=== PATIENT | male | born 1960 | race American Indian/Alaskan Native ===

== ENCOUNTER 2020-07-17 16:14 | Emergency (ER) | payer OTHER ==
--- NOTE | 2020-07-17 16:45 | Event Note ---
ED Screening Note Date of service: 07/17/20 Time: 16:41 ED Screening Note: 59-year-old male patient with history of dilated cardiomyopathy, left bundle branch block, hypertension, hyperlipidemia, prediabetes, obesity, prostate cancer, congestive heart failure, and biventricular AICD placement presents to the emergency department with complaints of slurred speech and difficulty walking. Last time known well was 14:30. States he "can't walk because he feels off balance." Patient was evaluated at another local emergency department prior to being transported to this facility by EMS. Attending emergency physician at outside facility discussed case with personal lines insurance agent neurologist, who recommended transporting patient to the nearest emergency department with capability for TPA administration. Hypertensive in triage. General: Awake, appropriately interactive, no acute distress. Neck: Supple. Full range of motion intact. Cardiovascular: Normal peripheral perfusion. Pulmonary: No respiratory distress. Patient is speaking normally without use of accessory muscles. Skin: No apparent rashes or lesions. Neurological: Patient is alert and oriented. Follows commands. Expressive aphasia noted. Musculoskeletal: Moves all four extremities spontaneously with normal range of motion. Psych: Cooperative. Appropriate mood and affect. Patient presents within the appropriate timeframe for TPA administration. Code stroke protocol initiated. Emergent head CT ordered. I have greeted and performed a focused rapid initial assessment of this patient. A comprehensive ED assessment and evaluation of the patient, analysis of all test results, and completion of the medical decision-making process will be conducted by additional ED providers. This initial assessment/diagnostic orders/clinical plan/treatment(s) is/are subject to change based on patients health status, clinical progression and re-assessment. Further treatment and workup at subsequent clinical provider's discretion. Patient/guardian urged not to elope from the ED as their condition may be serious if not clinically asses sed and managed.
--- NOTE | 2020-07-17 16:52 | Emergency Department Report ---
ED General Adult HPI - General Chief complaint: Neuro Symptoms/Deficit Stated complaint: DIZZY PUI?: No Source: patient, EMS ( EMS documentation not available at time of chart dictation ), RN notes reviewed Mode of arrival: Ambulatory Limitations: Physical Limitation - History of Present Illness Initial comments: The patient was evaluated in the emergency department for symptoms described in the history of present illness. He/she was evaluated in the context of the global COVID-19 pandemic, which necessitated consideration that the patient might be at risk for infection with the virus that causes COVID-19. Institutional protocols and algorithms that pertain to the evaluation of patients at risk for COVID-19 are in a state of rapid change based on information released by regulatory bodies including the CDC and federal and state organizations. These policies and algorithms were followed during the patient's care in the emergency department. Please note that these policies, procedures and recommendations changed on a rapid basis. Primary CARE doctor: [facility] reed The patient is a 59-year-old gentleman. He is not known to myself previously. His past medical history includes dilated cardiomyopathy, left bundle branch block, hypertension, hyperlipidemia, prediabetes, obesity, prostate cancer, and a biventricular AICD. He takes 81 mg of aspirin on a daily basis, but otherwise, denies systemic anticoagulation. He presents to the ER today as a possible code stroke. He was sent to the emergency room by a local physician at the [facility]. Patient's last known well time is 2:30 PM. Apparently he woke up at 3:00 PM today, and felt dysarthric, and unsteady, with left arm weakness and clumsiness. He was initially seen at an outpatient [facility] facility, which apparently did not have capability of performing neuroimaging, or administering TPA, and he was thus referred to this emergency room because of provided a higher level of care. A code stroke was called overhead, and a noncontrast CT scan of the brain was negative for acute findings. At the moment, the patient denies physical pain. He reports that he still feels somewhat dysarthric. He feels like his left upper extremity clumsiness and weakness is improved. A noncontrast CT scan of the brain he was negative for acute findings. Patient was evaluated by myself and our stroke neurologist, Dr. Moy Pabon; we both advised the patient that he was eligible for TPA, and we discussed risks, benefits, and alternatives. The patient provided informed refusal of TPA. The patient is amenable to CT angiogram of the head and neck to evaluate for large vessel occlusion. The patient currently denies headache, neck pain, chest pain, abdominal pain, s hortness of breath, urinary symptoms, hematemesis, bright red blood per rectum, and Covid symptomatology, he reports that he is completed his Covid vaccination series. -: Sudden, hour(s) Location: left, upper extremity Consistency: now resolved Improves with: none Worsens with: none Associated Symptoms: denies other symptoms - Related Data Home Medications Medication Instructions Recorded Confirmed Last Taken Furosemide [Lasix TAB] 40 mg PO QDAY 12/20/15 12/20/15 12/20/15 NIFEdipine XL [Procardia Xl] 60 mg PO QDAY 12/20/15 12/20/15 12/20/15 Spironolactone [Aldactone] 25 mg PO QDAY 12/20/15 12/20/15 12/20/15 Previous Rx's Medication Instructions Recorded Last Taken Type Albuterol Sulfate [Proair 90 mcg IH Q4HR PRN #2 aer.pow.ba 12/20/15 Unknown Rx Respiclick] Azithromycin [Zithromax] 250 mg PO QDAY #4 tablet 12/20/15 Unknown Rx Benzonatate [Tessalon Perles] 100 mg PO Q8HR PRN #30 capsule 12/20/15 Unknown Rx Fluticasone [Flonase] 1 spray NS QDAY #1 bottle 12/20/15 Unknown Rx predniSONE [Deltasone] 40 mg PO QDAY #8 tab 12/20/15 Unknown Rx Allergies Allergy/AdvReac Type Severity Reaction Status Date / Time No Known Allergies Allergy Unverified 12/20/15 11:52 ED Review of Systems ROS: Stated complaint: DIZZY Other details as noted in HPI Comment: All other systems reviewed and negative Neurological: weakness, numbness, abnormal gait, other (Dysarthria). denies: headache ED Past Medical Hx - Past Medical History Previous Medical History?: Yes Hx Hypertension: Yes Hx Congestive Heart Failure: Yes - Surgical History Past Surgical History?: Yes Hx Pacemaker: Yes Hx Internal Defibrillator: Yes - Social History Smoking Status: Never Smoker Substance Use Type: Alcohol - Medications Home Medications: Home Medications Medication Instructions Recorded Confirmed Last Taken Type Albuterol Sulfate [Proair 90 mcg IH Q4HR PRN #2 aer.pow.ba 12/20/15 Unknown Rx Respiclick] Azithromycin [Zithromax] 250 mg PO QDAY #4 tablet 12/20/15 Unknown Rx Benzonatate [Tessalon Perles] 100 mg PO Q8HR PRN #30 capsule 12/20/15 Unknown Rx Fluticasone [Flonase] 1 spray NS QDAY #1 bottle 12/20/15 Unknown Rx Furosemide [Lasix TAB] 40 mg PO QDAY 12/20/15 12/20/15 12/20/15 History NIFEdipine XL [Procardia Xl] 60 mg PO QDAY 12/20/15 12/20/15 12/20/15 History Spironolactone [Aldactone] 25 mg PO QDAY 12/20/15 12/20/15 12/20/15 History predniSONE [Deltasone] 40 mg PO QDAY #8 tab 12/20/15 Unknown Rx ED Physical Exam - General Limitations: No Limitations General appearance: alert, in no apparent distress, obese - Head Head exam: Present: atraumatic, normocephalic - Eye Eye exam: Present: normal appearance, EOMI. Absent: nystagmus - ENT ENT exam: Present: normal exam, normal orophraynx, mucous membranes moist, normal external ear exam - Neck Neck exam: Present: normal inspection, full ROM. Absent: tenderness, meningismus - Respiratory Respiratory exam: Present: normal lung sounds bilaterally. Absent: respiratory distress, wheezes, rales, rhonchi, stridor, decreased breath sounds - Cardiovascular Cardiovascular Exam: Present: regular rate, normal rhythm, normal heart sounds. Absent: bradycardia, tachycardia, irregular rhythm, systolic murmur, diastolic murmur, rubs, gallop - GI/Abdominal GI/Abdominal exam: Present: soft. Absent: distended, tenderness, guarding, rebound, rigid, pulsatile mass - Rectal Rectal exam: Present: deferred - Extremities Exam Extremities exam: Present: normal inspection, full ROM, other (2+ pulses noted in the bilateral upper and lower extremities. There is no palpable cord. negative Homans sign. Muscular compartments are soft. The pelvis is stable.). Absent: pedal edema, calf tenderness - Back Exam Back exam: Present: normal inspection, full ROM. Absent: tenderness, CVA tenderness (R), CVA tenderness (L), paraspinal tenderness, vertebral tenderness - Neurological Exam Neurological exam: Present: alert, oriented X3, other (There is no facial droop. The tongue is midline. The extraocular motors are intact bilaterally. There is minimal dysarthria. There is 5 out of 5 strength in 4 extremities. Sens ation is intact to light touch in 4 extremities. There is minimal dysmetria in the left upper extremity.) - Psychiatric Psychiatric exam: Present: normal affect, normal mood - Skin Skin exam: Present: warm, dry, intact, normal color. Absent: rash ED Course Vital Signs 07/17/20 07/17/20 07/17/20 16:37 17:21 17:30 Temperature 98.1 F Pulse Rate 72 71 142 H Respiratory 20 12 27 H Rate Blood Pressure 176/91 174/76 O2 Sat by Pulse 97 97 Oximetry - Reevaluation(s) Reevaluation #1: 07/17/20 17:38 Differential diagnosis, including but not limited to: Stroke, electrolyte derangement, Aly's paralysis, conversion disorder Assessment and plan: 59-year-old gentleman, with multiple vascular risk factors, last known well time at 2:30 PM today, presenting with symptoms suspicious for stroke, and who is TPA eligible. Both myself and the consulting neurologist advised that TPA was recommended and acceptable, however, the patient provided informed refusal at this time. The patient presents as awake, alert, oriented, clinically sober, and exhibits decision-making capacity. The patient does not want to receive TPA because he is worried about the risk of a fatal bleed. Patient understands the risk of permanent disability, dysarthria, and loss of quality of life. Patient is amenable to CT angiogram work-up. CTA head and neck will be obtained. At this point in time, the patient has a working and well-functioning 20-gauge IV in the dorsal aspect of his right hand. Nursing team not able to cannulate 20-gauge IV in the antecubital fossa. I also personally evaluated his anatomy, was not able to find a suitable vein to cannulate. Patient advised that he only gets IVs in the hand, and he has never been successfully cannulated in his antecubital fossa. I therefore advised the patient that we would be happy to place an ultrasound- guided internal jugular long Angiocath on the right or left side of his neck, at this point in time he is declining. The patient is amenable to CT angiogram attempted using the 20-gauge IV in the dorsal aspect of his right hand. Understands the risks of contrast extravasation. Also discussed this with radiologist, Dr. Magdi Nation, and discussed the specifics of the patient's care. He has specifically discussed this with our diagnostic radiologic technologist, and who has also personally tested the line, and we are in agreement that the dorsal IV in the right hand should be able to tolerate CT contrast bolus. Reassess after CT angiogram has resulted. This patient is also a [facility] patient, so we will discuss with the [facility] network. 07/17/20 18:25 CT angiogram head and neck negative for acute findings or large vessel occlusion. Aspirin ordered. Have read discussed with Dr. Almeida, [facility] physician. Patient accepted to [facility], as per [facility] protocol and policy, under the care of Dr. Howard; patient updated on plan of care. ED Medical Decision Making - Lab Data Result diagrams: 07/17/20 Unknown 07/17/20 Unknown Vital Signs 07/17/20 16:37 Temperature 98.1 F Pulse Rate 72 Respiratory 20 Rate Blood Pressure 176/91 O2 Sat by Pulse 97 Oximetry Lab Results 07/17/20 07/17/20 07/17/20 Range/Units 16:41 Unknown Unknown WBC 3.8 L (4.5-11.0) K/mm3 RBC 4.26 (3.65-5.03) M/mm3 Hgb 13.0 (11.8-15.2) gm/dl Hct 39.0 (35.5-45.6) % MCV 92 (84-94) fl MCH 30 (28-32) pg MCHC 33 (32-34) % RDW 14.9 (13.2-15.2) % Plt Count 168 (140-440) K/mm3 Lymph % (Auto) 17.3 (13.4-35.0) % Clinton % (Auto) 9.8 H (0.0-7.3) % Eos % (Auto) 3.8 (0.0-4.3) % Baso % (Auto) 1.3 (0.0-1.8) % Lymph # (Auto) 0.7 L (1.2-5.4) K/mm3 Clinton # (Auto) 0.4 (0.0-0.8) K/mm3 Eos # (Auto) 0.1 (0.0-0.4) K/mm3 Baso # (Auto) 0.0 (0.0-0.1) K/mm3 Seg Neutrophils % 67.8 (40.0-70.0) % Seg Neutrophils # 2.6 (1.8-7.7) K/mm3 PT 13.1 (12.2-14.9) Sec. INR 0.94 (0.87-1.13) APTT 28.6 (24.2-36.6) Sec. Thrombin Time 16.2 (15.1-19.6) Sec. Sodium (137-145) mmol/L Potassium (3.6-5.0) mmol/L Chloride (98-107) mmol/L Carbon Dioxide (22-30) mmol/L Anion Gap mmol/L BUN (9-20) mg/dL Creatinine (0.8-1.3) mg/dL Estimated GFR ml/min BUN/Creatinine Ratio % Glucose (75-100) mg/dL POC Glucose 125 H (70-105) mg/dL Calcium (8.4-10.2) mg/dL Total Bilirubin (0.1-1.2) mg/dL AST (5-40) units/L ALT (7-56) units/L Alkaline Phosphatase (35-129) units/L Total Creatine Kinase (55-170) units/L CK-MB (CK-2) (0.0-4.0) ng/mL CK-MB (CK-2) Rel Index (0-4) Troponin T (0.00-0.029) ng/mL Total Protein (6.3-8.2) g/dL Albumin (3.9-5) g/dL Albumin/Globulin Ratio % // Range/Units Unknown WBC (4.5-11.0) K/mm3 RBC (3.65-5.03) M/mm3 Hgb (11.8-15.2) gm/dl Hct (35.5-45.6) % MCV (84-94) fl MCH (28-32) pg MCHC (32-34) % RDW (13.2-15.2) % Plt Count (140-440) K/mm3 Lymph % (Auto) (13.4-35.0) % Clinton % (Auto) (0.0-7.3) % Eos % (Auto) (0.0-4.3) % Baso % (Auto) (0.0-1.8) % Lymph # (Auto) (1.2-5.4) K/mm3 Clinton # (Auto) (0.0-0.8) K/mm3 Eos # (Auto) (0.0-0.4) K/mm3 Baso # (Auto) (0.0-0.1) K/mm3 Seg Neutrophils % (40.0-70.0) % Seg Neutrophils # (1.8-7.7) K/mm3 PT (12.2-14.9) Sec. INR (0.87-1.13) APTT (24.2-36.6) Sec. Thrombin Time (15.1-19.6) Sec. Sodium 138 (137-145) mmol/L Potassium 4.4 (3.6-5.0) mmol/L Chloride 103.3 (98-107) mmol/L Carbon Dioxide 24 (22-30) mmol/L Anion Gap 15 mmol/L BUN 16 (9-20) mg/dL Creatinine 0.8 (0.8-1.3) mg/dL Estimated GFR > 60 ml/min BUN/Creatinine Ratio 20 % Glucose 126 H (75-100) mg/dL POC Glucose (70-105) mg/dL Calcium 8.8 (8.4-10.2) mg/dL Total Bilirubin 0.20 (0.1-1.2) mg/dL AST 11 (5-40) units/L ALT 9 (7-56) units/L Alkaline Phosphatase 84 (35-129) units/L Total Creatine Kinase 59 (55-170) units/L CK-MB (CK-2) 1.9 (0.0-4.0) ng/mL CK-MB (CK-2) Rel Index 3.2 (0-4) Troponin T < 0.010 (0.00-0.029) ng/mL Total Protein 7.0 (6.3-8.2) g/dL Albumin 4.1 (3.9-5) g/dL Albumin/Globulin Ratio 1.4 % - EKG Data -: EKG Interpreted by Me - EKG Data 07/17/20 17:33 Prehospital EKG interpreted by myself at 05: 3 3, p.m. This is an atrial paced rhythm, with a rate of 72 bpm, with a right axis deviation, poor R wave progression, motion artifact, QTC 529 ms. This is an abnormal EKG. The EKG is not a STEMI. - Radiology Data Radiology results: pending, report reviewed, image reviewed CT HEAD WITHOUT CONTRAST INDICATION / CLINICAL INFORMATION: Stroke-Like symptoms. Ataxia and aphasia. TECHNIQUE: All CT scans at this location are performed using CT dose reduction for ALARA by means of automated exposure control. COMPARISON: None available. FINDINGS: HEMORRHAGE: No evidence of intracranial hemorrhage or extra-axial fluid collection. EXTRA-AXIAL SPACES: Cortical sulci, sylvian fissures and basilar cisterns have an unremarkable appearance. VENTRICULAR SYSTEM: The third and lateral ventricles are of normal size and configuration. CEREBRAL PARENCHYMA: A well-circumscribed area of decreased brain parenchymal attenuation is seen in the white matter of the right frontal lobe. This may represent an age-indeterminate small deep infarction. MIDLINE SHIFT OR HERNIATION: There is no mass effect. CEREBELLUM / BRAINSTEM: Brainstem and cerebellum have an unremarkable appearance. MIDLINE STRUCTURES:No abnormalities of the pituitary gland or pineal region are identified. INTRACRANIAL VESSELS:No abnormalities are identified on this noncontrast head CT. ORBITS: visualized portions of the orbits have an unremarkable appearance. SOFT TISSUES of HEAD: No significant abnormality. CALVARIUM: Evaluation of bone windows reveals no abnormalities. PARANASAL SINUSES / MASTOID AIR CELLS: Visualized portions of the paranasal sinuses are free from inflammatory mucosal disease. Mastoid air cells are normally pneumatized. IMPRESSION: 1. 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 This is age indeterminate. 2. No additional abnormalities on head CT without contrast. CODE STROKE: Time of Communication (GAGE MAKER/CDT): 3765 Licensed Practitioner Receiving Report: Dr. Carrillo, [facility] emergency department. Signer Name: Goran Jones MD Signed: 07/17/2020 4:07 PM Workstation Name: [id number] CTA neck without and with intravenous contrast material CLINICAL HISTORY: Post-CODE STROKE PROTOCOL!!! Ataxia TECHNIQUE: Following acquisition of a timing bolus 0.625 mm thick contiguous axial scans were obtained from aortic a rch to the skull base during rapid bolus intravenous contrast infusion. In addition to evaluation of axial source images multiplanar reconstructions were produced and reviewed for this report. 3 plane MIP reconstructions were produced and reviewed. Contrast dose report: Omnipaque 350: 100 ml, administered intravenously All CT examinations performed at this facility utilize modulated dose reduction, iterative reconstruction or weight-based dosing, as appropriate, to obtain a radiation dose which is as low as can reasonably be achieved. FINDINGS: Thoracic aorta:No abnormalities are identified along the course of the thoracic aorta..The origins of the great vessels have an unremarkable ap pearance. Brachiocephalic artery, left common carotid artery origin and left subclavian artery all have an unremarkable appearance. Right carotid artery:No abnormalities are seen along the course of the RCCA, at the right carotid bifurcation or along the cervical portions of the TASIA. Prominent tortuosity of the proximal right internal carotid artery is noted. Left carotid artery: No abnormalities are noted along the course of the left common carotid artery, at the left carotid bifurcation or along the course of the cervical segments of the LICA. Pronounced tortuosity of the distal LICA is noted. Posterior circulation:The vertebral arteries have an unremarkable appearance. Both vertebral arteries contribute to the basilar artery origin. The basilar artery has an unremarkable appearance. The degree of stenosis, if any, is determined utilizing NASCET like criteria. In this case there is no indication of hemodynamically significant stenosis at the carotid bifurcations or elsewhere. Evaluation of the nonvascular soft tissue structures reveal no abnormality. There is no indication of cervical lymphadenopathy. No abnormalities are seen along the course of the airway. Visualized portions of the parotid glands and the submandibular salivary glands have a normal appearance. Thyroid gland has a normal appearance. Evaluation of the lung apices reveals no evidence of lung nodule or infiltrate. Widespread cervical spondylosis is noted with advanced degenerative disc disease evident at the C5-6, C6-7 and C7-T1 levels. IMPRESSION: 1. No indication of hemodynamically significant stenosis at the carotid bifurcations or elsewhere. Signer Name: Goran Jones MD Signed: 07/17/2020 5:08 PM Workstation Name: [id number] CTA head with intravenous contrast CLINICAL HISTORY: Cerebrovascular accident. Ataxia. TECHNIQUE: 0.625 mm thick contiguous axial scans were obtained from th e skull base to the skull vertex during rapid bolus administration of intravenous contrast material. Multiplanar reconstructions were produced in the coronal and sagittal planes. In addition 3 plane MIP instructions were produced and reviewed for this report. The axial source images and reconstructed images were reviewed for this report. CONTRAST DOSE REPORT: Omnipaque 350: 100 ml administered intravenously. All CT scans at this location are performed using CT dose reduction for ALARA by means of automated exposure control. FINDINGS: Internal carotid arteries:Nancy, cavernous, opthalmic, clinoid and supraclinoid segments of the ICAs have an unremarkable appearance. Middle cerebral ar teries:Normal and symmetrical M1 segments of the middle cerebral arteries are demonstrated. No abnormalities are seen on evaluation of the insular or opercular branches. Anterior cerebral arteries:Bilaterally symmetrical A1 segments are demonstrated. No abnormalities are seen along the course of the A2 segments or their visualized pericallosal branches. Vertebral arteries:Bilaterally symmetrical vertebral arteries are demonstrated. Both vertebral arteries contribute to the basilar artery origin. Basilar artery:Basilar artery has an unremarkable appearance. Posterior cerebral arteries: Bilaterally symmetrical posterior cerebral arteries are identified. Dural sinuses: Dural venous sinuses are well demonstrated on this exam. There is no evidence of dural sinus thrombosis. IMPRESSION: 1. No indication of intercranial stenosis or large vessel occlusion on CTA head. Signer Name: Mooike Jones MD Signed: 07/17/2020 5:12 PM Workstation Name: [id number] Critical Care Time: Yes Critical care time in (mins) excluding proc time.: 35 Critical care attestation.: If time is entered above; I have spent that time in minutes in the direct care of this critically ill patient, excluding procedure time. Critical Care Time: Critical care time includes multiple bedside reevaluations, interpretation of laboratory studies, radiology studies, discussion with multiple consulting physicians, including multiple radiologists, neurology, [facility] physician, multiple discussions with patient, regarding TPA risks, benefits and alternatives, and CT angiogram risks, benefits and alternatives. This does not include procedure time. ED Disposition Clinical Impression: Slurred speech, Unsteady gait, Obesity Disposition: [id number] GEN HOSP IP Is pt being admited?: No Does the pt Need Aspirin: No Condition: Good - Assessment Assessment Interval: Baseline - Level of Consciousness 1a. Level of Consciousness: alert/keenly responsive - LOC Questions 1b. LOC Questions: answers both correctly - LOC Command 1c. LOC Commands: performs tasks correctly - Best Gaze 2. Best Gaze: normal - Visual 3. Visual: no visual loss - Facial Palsy 4. Facial Palsy: normal symmetrical movement - Motor Arm 5a. Motor Arm Left: no drift 5b. Motor Arm Right: no drift - Motor Leg 6a. Motor Leg Left: no drift 6b. Motor Leg Right: no drift - Limb Ataxia 7. Limb Ataxia: present 1 limb - Sensory 8. Sensory: normal - Best Language 9. Best Language: no aphasia - Dysarthria 10. Dysarthria: mild/moderate dysarthria - Extinction and Inattention 11. Extinction/Inattention: no abnormality - Scoring Total Score: 2 Stroke Severity: Minor Stroke
[2020-07-17 17:05] LABS: Creatine Kinase MB 1.9 ng/mL (0.0-4.0)
[2020-07-17 17:06] LABS: Alanine Aminotransferase 9 units/L (7-56); Albumin 4.1 g/dL (3.9-5); BUN/Creatinine Ratio 20; Blood Urea Nitrogen 16 mg/dL (9-20); Calcium 8.8 mg/dL (8.4-10.2); Hemolysis Index 8
--- NOTE | 2020-07-17 17:12 | Cat Scan Report ---
CT HEAD WITHOUT CONTRAST INDICATION / CLINICAL INFORMATION: Stroke-Like symptoms. Ataxia and aphasia. TECHNIQUE: All CT scans at this location are performed using CT dose reduction for ALARA by means of automated e xposure control. COMPARISON: None available. FINDINGS: HEMORRHAGE: No evidence of intracranial hemorrhage or extra-axial fluid collection. EXTRA-AXIAL SPACES: Cortical sulci, sylvian fissures and basilar cisterns have an unremarkable appear ance. VENTRICULAR SYSTEM: The third and lateral ventricles are of normal size and configuration. CEREBRAL PARENCHYMA: A well-circumscribed area of decreased brain parenchymal attenuation is seen in the white matter of the right frontal lobe. This may represent an age-indeterminate small deep infarc tion. MIDLINE SHIFT OR HERNIATION: There is no mass effect. CEREBELLUM / BRAINSTEM: Brainstem and cerebellum have an unremarkable appearance. MIDLINE STRUCTURES:No abnormalities of the pituitary gland or pineal region are identified. INTRACRANIAL VESSELS:No abnormalities are identified on this noncontrast head CT. ORBITS: visualized portions of the orbits have an unremarkable appearance. SOFT TISSUES of HEAD: No significant abnormality. CALVARIUM: Evaluation of bone windows reveals no abnormalities. PARANASAL SINUSES / MASTOID AIR CELLS: Visualized portions of the paranasal sinuses are free from inf lammatory mucosal disease. Mastoid air cells are normally pneumatized. IMPRESSION: 1. 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 This is age indetermi naida. 2. No additional abnormalities on head CT without contrast. CODE STROKE: Time of Communication (DRIER TENDER NAPHTHALENE/CDT): 1605 Licensed Practitioner Receiving Report: Dr. Carrillo, [facility] emergency depar tment. Signer Name: Goran Jones MD Signed: 07/17/2020 5:07 PM Workstation Name: [id number]
[2020-07-17 17:13] LABS: Basophils % (Auto) 1.3 % (0.0-1.8); Eosinophils # (Auto) 0.1 K/mm3 (0.0-0.4); Eosinophils % (Auto) 3.8 % (0.0-4.3); Lymphocytes # (Auto) 0.7 K/mm3 (1.2-5.4); Lymphocytes % (Auto) 17.3 % (13.4-35.0); Mean Corpuscular HGB Conc 33 % (32-34); Mean Corpuscular Volume 92 fl (84-94); Monocytes # (Auto) 0.4 K/mm3 (0.0-0.8); Monocytes % (Auto) 9.8 % (0.0-7.3); Platelet Count 168 K/mm3 (140-440); Red Blood Count 4.26 M/mm3 (3.65-5.03); Red Cell Distribution Width 14.9 % (13.2-15.2)
[2020-07-17 17:17] LABS: INR 0.94 (0.87-1.13)
[2020-07-17 17:18] LABS: Partial Thromboplastin Time 28.6 Sec. (24.2-36.6); Thrombin Time 16.2 Sec. (15.1-19.6)
--- NOTE | 2020-07-17 18:12 | Cat Scan Report ---
CTA neck without and with intravenous contrast material CLINICAL HISTORY: Post-CODE STROKE PROTOCOL!!! Ataxia TECHNIQUE: Following acquisition of a timing bolus 0.625 mm thick contiguous axial scans were obtained from aort ic arch to the skull base during rapid bolus intravenous contrast infusion. In addition to evaluation of axial source images multiplanar reconstructions were produced and reviewed for this report. 3 michael ne MIP reconstructions were produced and reviewed. Contrast dose report: Omnipaque 350: 100 ml, administered intravenously All CT examinations performed at this facility utilize modulated dose reduction, iterative reconstruc tion or weight-based dosing, as appropriate, to obtain a radiation dose which is as low as can reason ably be achieved. FINDINGS: Thoracic aorta:No abnormalities are identified along the course of the thoracic aorta..The origins of the great vessels have an unremarkable appearance. Brachiocephalic artery, left common carotid arter y origin and left subclavian artery all have an unremarkable appearance. Right carotid artery:No abnormalities are seen along the course of the RCCA, at the right carotid bif urcation or along the cervical portions of the TASIA. Prominent tortuosity of the proximal right inter nal carotid artery is noted. Left carotid artery: No abnormalities are noted along the course of the left common carotid artery, a t the left carotid bifurcation or along the course of the cervical segments of the LICA. Pronounced t ortuosity of the distal LICA is noted. Posterior circulation:The vertebral arteries have an unremarkable appearance. Both vertebral arteries contribute to the basilar artery origin. The basilar artery has an unremarkable appearance. The degree of stenosis, if any, is determined utilizing NASCET like criteria. In this case there is no indication of hemodynamically significant stenosis at the carotid bifurcations or elsewhere. Evaluation of the nonvascular soft tissue structures reveal no abnormality. There is no indication of cervical lymphadenopathy. No abnormalities are seen along the course of the airway. Visualized porti ons of the parotid glands and the submandibular salivary glands have a normal appearance. Thyroid gla nd has a normal appearance. Evaluation of the lung apices reveals no evidence of lung nodule or infil trate. Widespread cervical spondylosis is noted with advanced degenerative disc disease evident at the C5-6, C6-7 and C7-T1 levels. IMPRESSION: 1. No indication of hemodynamically significant stenosis at the carotid bifurcations or elsewhere. Signer Name: Goran Jones MD Signed: 07/17/2020 6:08 PM Workstation Name: [id number]
--- NOTE | 2020-07-17 18:16 | Cat Scan Report ---
CTA head with intravenous contrast CLINICAL HISTORY: Cerebrovascular accident. Ataxia. TECHNIQUE: 0.625 mm thick contiguous axial scans were obtained from the skull base to the skull vertex during r apid bolus administration of intravenous contrast material. Multiplanar reconstructions were produced in the coronal and sagittal planes. In addition 3 plane MIP instructions were produced and reviewed for this report. The axial source images and reconstructed images were reviewed for this report. CONTRAST DOSE REPORT: Omnipaque 350: 100 ml administered intravenously. All CT scans at this location are performed using CT dose reduction for ALARA by means of automated e xposure control. FINDINGS: Internal carotid arteries:Nancy, cavernous, opthalmic, clinoid and supraclinoid segments of the ICAs have an unremarkable appearance. Middle cerebral arteries:Normal and symmetrical M1 segments of the middle cerebral arteries are demon strated. No abnormalities are seen on evaluation of the insular or opercular branches. Anterior cerebral arteries:Bilaterally symmetrical A1 segments are demonstrated. No abnormalities are seen along the course of the A2 segments or their visualized pericallosal branches. Vertebral arteries:Bilaterally symmetrical vertebral arteries are demonstrated. Both vertebral arteri es contribute to the basilar artery origin. Basilar artery:Basilar artery has an unremarkable appearance. Posterior cerebral arteries: Bilaterally symmetrical posterior cerebral arteries are identified. Dural sinuses: Dural venous sinuses are well demonstrated on this exam. There is no evidence of dural sinus thrombosis. IMPRESSION: 1. No indication of intercranial stenosis or large vessel occlusion on CTA head. Signer Name: Goran Jones MD Signed: 07/17/2020 6:12 PM Workstation Name: [id number]
[2020-07-17] MEDS ORDERED: ASPIRIN 81 MG TAB CHEW PO ONE (18:24)
[2020-07-17 20:50] VITALS: BP 157/85
--- NOTE | 2020-07-19 10:38 | Electrocardiograph Report ---
[facility] Test Date: 2020-07-17 Test Time: 18:44:09 Pat Name: MARIN OREILLY Department: Room: Gender: M Enrolled Nurse: YOANA : [id number] Requested By: EDY GAFFNEY Order Number: [id number] Reading MD: Boo Scherer Measurements Intervals [place] Rate: 71 P: 174 NV: 200 QRS: -47 QRSD: 135 T: 139 QT: 468 QTc: 508 Interpretive Statements Atrial-sensed ventricular-paced complexes Biventricular paced rhythm No previous ECG available for comparison Electronically Signed On 07-19-2020 10:37:46 EDT by Boo Scherer
== END 2020-07-17 21:38 | disposition short-term general hospital (02) ==
LOC: ED 16:14
DX: R47.81 Slurred speech (principal); E66.8 Other obesity; R26.81 Unsteadiness on feet; I11.0 Hypertensive heart disease with heart failure; I50.9 Heart failure, unspecified; Z95.0 Presence of cardiac pacemaker; Z72.89 Other problems related to lifestyle; Z98.890 Other specified postprocedural states; Z79.899 Other long term (current) drug therapy
CPT/HCPCS: 36415; 70450; 70496; 70498; 80053; 82550; 82553; 82962; 84484; 85025; 85610; 85670; 85730; 93005; 99291; Q9967